=== PATIENT | female | born 1975 | race Caucasian/White ===

== ENCOUNTER 2022-01-16 19:29 | Emergency (ER) | payer BC ==
[2022-01-16] MEDS ORDERED: Acetaminophen 500 MG TAB ONE (19:57)
[2022-01-16] MEDS ORDERED: Ketorolac Tromethamine 30 MG/ML VIAL ONE (19:57)
[2022-01-16 20:05] LABS: #Basophils 0.1 thou/uL (0.0-0.2); #Eosinphils 0.2 thou/uL (0.0-0.7); #Lymphocytes 2.7 thou/uL (1.20-3.40); #Monocytes 0.5 thou/uL (0.11-0.59); #Neutrophils 4.4 thou/uL (1.40-6.50); %Basophils 0.8 % (0.0-1.0); %Eosinophils 2.4 % (0.0-10.0); %Lymphocytes 34.3 % (21.0-51.0); %Monocytes 6.8 % (0.0-10.0); %Neutrophils 55.7 % (42.0-75.0); Hemoglobin 11.2 g/dL (12.0-16.0); Mean Corpuscular HGB CONC 33.5 g/dL (32.0-36.0); Mean Corpuscular Hemoglobin 29.9 pg (27.0-31.0); Mean Corpuscular Volume 89.2 fL (78.0-98.0); Mean Platelet Volume 6.6 fL (7.4-10.4); Platelet Count 246 thou/uL (130-400); RBC Distribution Width 11.3 % (11.5-14.5); Red Blood Cell (RBC) Count 3.74 mill/uL (4.20-5.40)
[2022-01-16] MEDS ORDERED: Orphenadrine Citrate 60 MG/2 ML VIAL IM SCH (20:15)
[2022-01-16 20:21] LABS: ALT (SGPT) 7 U/L (8-55); AST (SGOT) 13 U/L (5-34); Alkaline Phosphatase 86 U/L (40-110); Anion Gap 12 mmol/L (10-20); BUN (Urea Nitrogen) 6 mg/dL (7.0-18.7); Bilirubin, Total 0.3 mg/dL (0.2-1.2); CK (CPK) 79 U/L (29-168); Calc. Creatinine Clearance 0 mL/min (70-130); Calcium 8.6 mg/dL (7.8-10.44); Carbon Dioxide 31 mmol/L (22-29); Chloride 97 mmol/L (98-107); Globulin 2.9 g/dL (2.4-3.5); Glucose 98 mg/dL (70-105); Potassium 3.3 mmol/L (3.5-5.1); Protein, Total 6.9 g/dL (6.0-8.3); Sodium 137 mmol/L (136-145)
== END 2022-01-16 21:55 | disposition home or self-care (01) ==
LOC: ERS 19:29
DX: M54.41 Lumbago with sciatica, right side (principal); B02.29 Other postherpetic nervous system involvement; K21.9 Gastro-esophageal reflux disease without esophagitis; I10 Essential (primary) hypertension; Z79.899 Other long term (current) drug therapy
CPT/HCPCS: 36415; 80053; 82550; 85025; 96372; 96374; J1885; J2360

== ENCOUNTER 2022-05-06 08:07 | Outpatient (CLI) | payer BC | END 2022-05-06 08:08 | disposition home or self-care (01) | LOC: BICCT 08:07 | PROVIDERS: ATTEND Physician Assistant Surgical | DX: S82.224D Nondisplaced transverse fracture of shaft of right tibia, subsequent encounter for closed fracture with routine healing (principal); S82.001D Unspecified fracture of right patella, subsequent encounter for closed fracture with routine healing; S82.301G Unspecified fracture of lower end of right tibia, subsequent encounter for closed fracture with delayed healing ==

== ENCOUNTER 2022-11-09 14:47 | Emergency (ER) | payer BC ==
[2022-11-09] MEDS ORDERED: Ketorolac Tromethamine 30 MG/ML VIAL ONE (15:46)
== END 2022-11-09 16:10 | disposition home or self-care (01) ==
LOC: ERS 14:47
DX: S82.302A Unspecified fracture of lower end of left tibia, initial encounter for closed fracture (principal); K21.9 Gastro-esophageal reflux disease without esophagitis; I10 Essential (primary) hypertension; X50.9XXA Other and unspecified overexertion or strenuous movements or postures, initial encounter
CPT/HCPCS: 96372; J1885

== ENCOUNTER 2022-11-29 09:34 | Outpatient (CLI) | payer BC ==
[2022-11-29 10:28] LABS: Anion Gap 13 mmol/L (10-20); BUN (Urea Nitrogen) 6 mg/dL (7.0-18.7); Calc. Creatinine Clearance 0 mL/min (70-130); Calcium 9.4 mg/dL (7.8-10.44); Carbon Dioxide 31 mmol/L (22-29); Chloride 98 mmol/L (98-107); Estimated GFR 91; Glucose 120 mg/dL (70-105); Potassium 3.9 mmol/L (3.5-5.1); Sodium 138 mmol/L (136-145)
== END 2022-11-29 09:35 | disposition home or self-care (01) ==
LOC: LABBT 09:34
PROVIDERS: ATTEND Orthopaedic Surgery
DX: Z01.812 Encounter for preprocedural laboratory examination (principal); S82.202A Unspecified fracture of shaft of left tibia, initial encounter for closed fracture
CPT/HCPCS: 80048; 93005; 93010

== ENCOUNTER 2022-12-02 10:19 | Observation (INO) | payer BC ==
[2022-11-29 10:49] VITALS: BMI 35.9
[2022-12-02] MEDS ORDERED: Midazolam HCl 2 mg/2 ml Vial ONE (12:06)
[2022-12-02] MEDS ORDERED: Fentanyl 100 MCG/2 ML VIAL ONE ×4 (12:06→19:18)
[2022-12-02] MEDS ORDERED: Ropivacaine 0.5% HCl/PF (150 MG/30 ML VIAL) ONE ×2 (12:07→17:00)
[2022-12-02] MEDS ORDERED: Sodium Chloride 0.9% 100 ML ONE (12:23)
[2022-12-02] MEDS ORDERED: CEFAZOLIN 2 GM VIAL ONE (12:23)
[2022-12-02] MEDS ORDERED: fentaNYL PF 100 MCG/2 ML SYRINGE ONE (12:41)
[2022-12-02] MEDS ORDERED: Zolpidem Tartrate 5 MG TAB PO PRN (12:45)
[2022-12-02] MEDS ORDERED: Ropivacaine 0.2% 550 ML 550 ML NERVE BLCK SCH (12:45)
[2022-12-02] MEDS ORDERED: HYDROcodone/Acetaminophen 10/325 mg Tablet PO PRN ×3 (12:45→15:12)
[2022-12-02] MEDS ORDERED: Ondansetron PF 4 MG/2 ML Vial IVP PRN (12:45)
[2022-12-02] MEDS ORDERED: Promethazine HCl 25 MG/ML VIAL IM PRN ×3 (12:45→15:12)
[2022-12-02] MEDS ORDERED: ePHEDrine 50 MG/ML VIAL ONE (13:10)
[2022-12-02] MEDS ORDERED: Dexamethasone 20 MG/5 ML VIAL ONE (13:10)
[2022-12-02] MEDS ORDERED: Ondansetron PF 4 MG/2 ML Vial ONE (13:10)
[2022-12-02] MEDS ORDERED: Glycopyrrolate 0.2 MG/ML 5 ML SYRINGE ONE (13:10)
[2022-12-02] MEDS ORDERED: PROPOFOL 200 MG/20 ML VIAL ONE (13:10)
[2022-12-02 13:18] LABS: SARS-CoV-2 NAA Rapid Test Not Detected (NotDetected)
[2022-12-02] MEDS ORDERED: PROPOFOL 20 ML ONE (13:33)
[2022-12-02] MEDS ORDERED: Ondansetron HCl/PF 4 MG/2 ML Vial IVP PRN (14:55)
[2022-12-02] MEDS ORDERED: Acetaminophen 325 MG TAB PO PRN (15:12)
[2022-12-02] MEDS ORDERED: Ondansetron PF 4 MG/2 ML Vial SLOW IVP PRN (15:12)
[2022-12-02] MEDS ORDERED: TETANUS, DIPHTHERIA TOX,ADULT (TDVAX) 0.5 ML VIAL IM ONE (15:12)
[2022-12-02] MEDS ORDERED: Communication Order-Pharmacy FS SCH (15:15)
[2022-12-02] MEDS ORDERED: HYDROmorphone 0.5 MG/0.5 ML SYRINGE ONE ×4 (15:24→16:37)
[2022-12-02] MEDS ORDERED: Ketorolac Tromethamine 30 MG/ML VIAL ONE (16:03)
[2022-12-02] MEDS: Ketorolac Tromethamine 30 MG/ML VIAL IVP SCH (16:08)
[2022-12-02] MEDS ORDERED: Acetaminophen 500 MG TAB ONE (16:10)
[2022-12-02] MEDS ORDERED: oxyCODONE 5 MG TAB ONE ×2 (16:10→16:21)
[2022-12-02] MEDS ORDERED: Lidocaine 1% PF 5 ML VIAL ONE ×2 (17:02→18:25)
[2022-12-02] MEDS ORDERED: Ketamine 50 MG/ML (10ML VIAL) ONE (17:46)
[2022-12-02] MEDS ORDERED: Ketorolac Tromethamine 30 MG/ML VIAL IVP SCH (18:00)
[2022-12-02] MEDS ORDERED: Bupivacaine 0.25% HCL 30 ML VIAL ONE ×2 (18:25)
[2022-12-02] MEDS: HYDROcodone/Acetaminophen 10/325 mg Tablet PO PRN (20:55)
[2022-12-02] MEDS: Fentanyl 100 MCG/2 ML VIAL IV PRN (20:55)
[2022-12-02] MEDS: Aspirin 81 mg Enteric Coated Tablet PO SCH (20:55)
[2022-12-02] MEDS: CEFAZOLIN 2 GM in Sodium Chloride 0.9% 100 ML IVPB SCH (21:02)
[2022-12-03] MEDS: Ketorolac Tromethamine 30 MG/ML VIAL IVP SCH ×4 (00:57→18:04)
[2022-12-03] MEDS: HYDROcodone/Acetaminophen 10/325 mg Tablet PO PRN ×6 (00:59→22:26)
[2022-12-03] MEDS: CEFAZOLIN 2 GM in Sodium Chloride 0.9% 100 ML IVPB SCH (05:27)
[2022-12-03] MEDS: Fentanyl 100 MCG/2 ML VIAL IV PRN (05:32)
[2022-12-03 06:36] LABS: #Lymphocytes 1.3 thou/uL (1.20-3.40); #Monocytes 0.5 thou/uL (0.11-0.59); #Neutrophils 9.1 thou/uL (1.40-6.50); %Basophils 0.1 % (0.0-1.0); %Eosinophils 0.1 % (0.0-10.0); %Lymphocytes 12.1 % (21.0-51.0); %Monocytes 4.8 % (0.0-10.0); Hemoglobin 10.3 g/dL (12.0-16.0); Mean Corpuscular HGB CONC 34.2 g/dL (32.0-36.0); Mean Corpuscular Hemoglobin 28.7 pg (27.0-31.0); Mean Platelet Volume 7.1 fL (7.4-10.4); Platelet Count 258 10x3/uL (130-400); RBC Distribution Width 12.1 % (11.5-14.5); Red Blood Cell (RBC) Count 3.59 mill/uL (4.20-5.40)
[2022-12-03] MEDS: Aspirin 81 mg Enteric Coated Tablet PO SCH ×2 (09:33→21:13)
[2022-12-04] MEDS: HYDROcodone/Acetaminophen 10/325 mg Tablet PO PRN ×3 (03:41→12:16)
[2022-12-04] MEDS: Aspirin 81 mg Enteric Coated Tablet PO SCH (07:47)
[2022-12-04 11:32] VITALS: BP 130/80; TEMP 98.2
[2022-12-06] MEDS ORDERED: FLU VACC QS2022-23(6MOS UP)/PF 60 MCG/0.5 ML SYRINGE IM ONE (09:00)
== END 2022-12-04 14:52 | disposition home or self-care (01) ==
LOC: SDC 10:19 → SURG A 15:12
PROVIDERS: ADMIT Orthopaedic Surgery; ATTEND Orthopaedic Surgery
PROC: 0QSH06Z Reposition Left Tibia with Intramedullary Internal Fixation Device, Open Approach (ICD-10-PCS; principal; 2022-12-04)
DX: M84.362A Stress fracture, left tibia, initial encounter for fracture (principal); I10 Essential (primary) hypertension; Z79.899 Other long term (current) drug therapy; Z88.1 Allergy status to other antibiotic agents; Z88.5 Allergy status to narcotic agent; Z20.822 Contact with and (suspected) exposure to COVID-19
CPT/HCPCS: 36415; 85025; 96374; 96375; 96376; A4306; C1713; G0378; J1100; J1170; J1885; J2250; J2405; J2704; J2795; J3010; J3490; S0020; U0002

== ENCOUNTER 2023-12-08 08:10 | Outpatient (CLI) | payer BC ==
[2023-12-08 09:37] LABS: Anion Gap 13 mmol/L (10-20); BUN (Urea Nitrogen) 11 mg/dL (7.0-18.7); Calc. Creatinine Clearance 0 mL/min (70-130); Calcium 8.8 mg/dL (7.8-10.44); Carbon Dioxide 32 mmol/L (22-29); Chloride 101 mmol/L (98-107); Estimated GFR 87; Glucose 109 mg/dL (70-105); Sodium 142 mmol/L (136-145)
== END 2023-12-08 08:11 | disposition home or self-care (01) ==
LOC: LABBT 08:10
PROVIDERS: ATTEND Orthopaedic Surgery
DX: Z01.818 Encounter for other preprocedural examination (principal); S82.201A Unspecified fracture of shaft of right tibia, initial encounter for closed fracture
CPT/HCPCS: 80048; 93005; 93010

== ENCOUNTER 2023-12-11 12:04 | Observation (INO) | payer BC ==
[2023-12-08 08:46] VITALS: BMI 32.1
[2023-12-11] MEDS ORDERED: PROPOFOL 40 ML ONE (13:02)
[2023-12-11] MEDS ORDERED: fentaNYL 50 mcg/mL 1 mL Vial ONE ×2 (13:02→13:34)
[2023-12-11] MEDS ORDERED: Ondansetron PF 4 MG/2 ML Vial ONE (13:04)
[2023-12-11] MEDS ORDERED: Lidocaine 1% PF 5 ML VIAL ONE (13:04)
[2023-12-11] MEDS ORDERED: Dexamethasone 4 mg/ml Vial ONE (13:04)
[2023-12-11] MEDS ORDERED: Lidocaine 2% 6 ML (Jelly) SYR ONE (13:05)
[2023-12-11] MEDS ORDERED: CEFAZOLIN 2 GM VIAL ONE (13:25)
[2023-12-11] MEDS ORDERED: Sodium Chloride 0.9% 100 ML ONE (13:26)
[2023-12-11] MEDS ORDERED: Midazolam HCl 2 mg/2 ml Vial ONE (13:34)
[2023-12-11] MEDS ORDERED: Ropivacaine 0.5% HCl/PF (150 MG/30 ML VIAL) ONE (13:35)
[2023-12-11] MEDS ORDERED: Ropivacaine 0.2% 550 ML 550 ML NERVE BLCK SCH (14:30)
[2023-12-11] MEDS ORDERED: Promethazine HCl 25 MG/ML VIAL IM PRN (14:30)
[2023-12-11] MEDS ORDERED: Zolpidem Tartrate 5 MG TAB PO PRN (14:30)
[2023-12-11] MEDS ORDERED: Ondansetron PF 4 MG/2 ML Vial IVP PRN ×2 (14:30→16:22)
[2023-12-11] MEDS ORDERED: fentaNYL 50 mcg/mL 1 mL Vial SLOW IVP PRN ×2 (14:33→16:32)
[2023-12-11 15:17] LABS: Hematocrit 29.9 % (36.0-47.0); Hemoglobin 10.3 g/dL (12.0-16.0)
[2023-12-11] MEDS ORDERED: HYDROcodone/Acetaminophen 10/325 mg Tablet PO PRN ×2 (16:22)
[2023-12-11] MEDS ORDERED: Acetaminophen 325 MG TAB PO PRN (16:22)
[2023-12-11] MEDS ORDERED: Bisacodyl 10 MG SUPP PR PRN (16:22)
[2023-12-11] MEDS ORDERED: Ondansetron ODT 4 MG TAB PO PRN (16:22)
[2023-12-11] MEDS: Ketorolac Tromethamine 30 MG (1 mL) VIAL IVP SCH (19:01)
[2023-12-11] MEDS: HYDROcodone/Acetaminophen 10/325 mg Tablet PO PRN ×2 (21:26→21:42)
[2023-12-11] MEDS: CEFAZOLIN 2 GM in Sodium Chloride 0.9% 100 ML IVPB SCH (21:27)
[2023-12-11] MEDS: Famotidine 20 MG TAB PO SCH (21:28)
[2023-12-12 04:01] LABS: #Monocytes 0.8 thou/uL (0.11-0.59); #Neutrophils 10.3 thou/uL (1.40-6.50); %Basophils 0.1 % (0.0-1.0); %Lymphocytes 11.2 % (21.0-51.0); %Monocytes 6.1 % (0.0-10.0); %Neutrophils 82.3 % (42.0-75.0); Hematocrit 32.2 % (36.0-47.0); Hemoglobin 10.9 g/dL (12.0-16.0); Mean Corpuscular HGB CONC 33.9 g/dL (32.0-36.0); Mean Corpuscular Hemoglobin 28.8 pg (27.0-31.0); Mean Corpuscular Volume 85.2 fl (78.0-98.0); Mean Platelet Volume 9.6 fL (7.4-10.4); Platelet Count 249 10x3/uL (130-400); RBC Distribution Width 13.1 % (11.5-14.5); Red Blood Cell (RBC) Count 3.78 mill/uL (4.20-5.40); White Blood Cell (WBC) Count 12.5 10x3/uL (4.8-10.8)
[2023-12-12 08:14] VITALS: BP 143/57; TEMP 98.4
== END 2023-12-12 12:59 | disposition home or self-care (01) ==
LOC: SDC 12:04 → SURG A 16:29
PROVIDERS: ADMIT Orthopaedic Surgery; ATTEND Orthopaedic Surgery
PROC: 0QSG06Z Reposition Right Tibia with Intramedullary Internal Fixation Device, Open Approach (ICD-10-PCS; principal; 2023-12-11)
DX: S82.234 Nondisplaced oblique fracture of shaft of right tibia (principal); I10 Essential (primary) hypertension; Z90.49 Acquired absence of other specified parts of digestive tract; Z88.5 Allergy status to narcotic agent; Z88.1 Allergy status to other antibiotic agents; X58.XXXD Exposure to other specified factors, subsequent encounter
CPT/HCPCS: 36415; 85014; 85018; 85025; A4306; C1713; J1100; J1885; J2250; J2405; J2704; J2795; J3010; J3490

== ENCOUNTER 2023-12-12 14:00 | Emergency (ER) | payer BC | END 2023-12-12 15:59 | disposition home or self-care (01) | LOC: ERS 14:00 | DX: M96.831 Postprocedural hemorrhage of a musculoskeletal structure following other procedure (principal); I10 Essential (primary) hypertension | CPT/HCPCS: 12001; 99283 ==

== ENCOUNTER 2024-05-12 12:54 | Emergency (ER) | payer BC ==
[2024-05-12] MEDS ORDERED: Ketorolac Tromethamine 30 MG (1 mL) VIAL ONE (16:31)
[2024-05-12] MEDS ORDERED: HYDROcodone/Acetaminophen 10/325 mg Tablet ONE (16:32)
[2024-05-12 19:02] LABS: Anion Gap 12 mmol/L (10-20); BUN (Urea Nitrogen) 11 mg/dL (7.0-18.7); Calc. Creatinine Clearance 0 mL/min (70-130); Calcium 9.6 mg/dL (7.8-10.44); Carbon Dioxide 32 mmol/L (22-29); Chloride 95 mmol/L (98-107); Estimated GFR 79; Glucose 108 mg/dL (70-105); Potassium 3.6 mmol/L (3.5-5.1); Sodium 135 mmol/L (136-145)
== END 2024-05-12 19:45 | disposition home or self-care (01) ==
LOC: ERS 12:54
DX: I82.441 Acute embolism and thrombosis of right tibial vein (principal); I10 Essential (primary) hypertension
CPT/HCPCS: 36415; 80048; 96372; J1885